=== PATIENT | female | born 1995 | race African-American/Black ===

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

== ENCOUNTER 2017-03-17 09:49 | Emergency (ER) | payer SELFPAY, BC, MEDICAID ==
[2017-03-17 10:13] LABS: URINE HCG POC HCG NEGATIVE (Negative)
[2017-03-17 10:19] LABS: BILIRUBIN,URINE NEGATIVE (NEG); CLARITY,URINE CLEAR; COLOR,URINE YELLOW; GLUCOSE,URINE NEGATIVE (NEG); NITRITE,URINE NEGATIVE (NEG); PROTEIN,URINE NEGATIVE (NEG-TRACE); UROBILINOGEN,URINE 0.2 mg/dL (0.2 mg/dL)
[2017-03-17 10:29] LABS: BACTERIA,URINE FEW /HPF (0-FEW); RBC,URINE 0 /HPF (0-2); SQUAMOUS EPITHELIAL CELL,UR MOD /LPF; WBC,URINE 0 /HPF (0-4)
[2017-03-21 01:12] LABS: CHLAMYDIA PROBE Negative (Negative); GC PROBE Negative (Negative)
== END 2017-03-17 12:04 | disposition home or self-care (01) ==
LOC: ER 09:49
DX: R30.0 Dysuria (principal); N89.8 Other specified noninflammatory disorders of vagina; Z87.440 Personal history of urinary (tract) infections
CPT/HCPCS: 81001; 81025; 87491; 87591; 99284; Q0111

== ENCOUNTER 2017-05-27 21:48 | Emergency (ER) | payer BC ==
[2017-05-27 22:06] LABS: URINE HCG POC HCG NEGATIVE (Negative)
== END 2017-05-27 23:23 | disposition home or self-care (01) ==
LOC: ER 21:48
DX: R14.1 Gas pain (principal); R07.89 Other chest pain; R10.12 Left upper quadrant pain; R05 Cough; R09.81 Nasal congestion; R19.7 Diarrhea, unspecified; R09.89 Other specified symptoms and signs involving the circulatory and respiratory systems; Z87.440 Personal history of urinary (tract) infections
CPT/HCPCS: 81025; 99284

== ENCOUNTER 2017-08-20 21:04 | Emergency (ER) | payer BC ==
[2017-08-20 21:36] LABS: BILIRUBIN,URINE NEGATIVE (NEG); CLARITY,URINE CLEAR; COLOR,URINE YELLOW; GLUCOSE,URINE NEGATIVE (NEG); NITRITE,URINE NEGATIVE (NEG); PH,URINE 6.5; PROTEIN,URINE NEGATIVE (NEG-TRACE)
[2017-08-20 21:37] LABS: URINE HCG POC HCG NEGATIVE (Negative)
[2017-08-20 21:45] LABS: BACTERIA,URINE FEW /HPF (0-FEW); SQUAMOUS EPITHELIAL CELL,UR MOD /LPF
== END 2017-08-20 22:25 | disposition home or self-care (01) ==
LOC: ER 22:25
DX: N39.0 Urinary tract infection, site not specified (principal)
CPT/HCPCS: 81001; 81025; 87086; 99284

== ENCOUNTER 2021-01-02 12:48 | Emergency (ER) | payer SELFPAY ==
[~2021-01-02] VITALS: Ht 165.1 cm; Wt 93.8 kg
[~2021-01-02 12:48] MED LIST changes: +CEPH500T PO; +DOXY-96 PO; +DOXY100T PO; +FLUC150T PO; +IBUP-1007 PO; +MECL-75 PO; +METH4TAB2 PO; +NAPR500T8 PO; +PHEN100T82 PO
[2021-01-02 13:06] LABS: BILIRUBIN,URINE NEGATIVE (NEG); CLARITY,URINE CLOUDY; COLOR,URINE YELLOW; NITRITE,URINE NEGATIVE (NEG); PH,URINE 7.5 (<5.0-8.0); PROTEIN,URINE 30 mg/dL (NEG-TRACE); UROBILINOGEN,URINE 0.2 mg/dL (0.2 mg/dL)
--- NOTE | 2021-01-02 13:06 | PHYS DOC ---
Past Medical History Past Medical History: No Pertinent History (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 She states that today she started having right side pain. She denies urinary symptoms, vaginal bleeding, abnormal vaginal discharge, STD concern, fever, diarrhea, constipation, nausea, vomiting. Patient states that she did go see Dr Kaplan this past Monday and they did an ultrasound but she is to early for them to see anything. Her pain a 2 out of 10 at this time[address] [facility] Review of Systems: Review of Systems: Constitutional: Denies fever or chills. [] Eyes: Denies change in visual acuity. [] HENT: Denies nasal congestion or sore throat. [] Respiratory: Denies cough or shortness of breath. [] Cardiovascular: Denies chest pain or edema. [] GI: + Low mid abdominal pain, denies nausea, vomiting, bloody stools or diarrhea. [] : Denies dysuria. [] Musculoskeletal: + Right side back pain or denies joint pain. [] Integument: Denies rash. [] Neurologic: Denies headache, focal weakness or sensory changes. [] Endocrine: Denies polyuria or polydipsia. [] Lymphatic: Denies swollen glands. [] Psychiatric: Denies depression or anxiety. [] [facility]IC[facility]) Heart Score: C/O Chest Pain: No ([facility]) Allergies: Allergies: Allergies Coded Allergies Type Severity Reaction Last Updated Verified No Known Drug Allergies 10/20/14 No [facility]) Physical Exam: PE: Constitutional: Well developed, well nourished, no acute distress, non-toxic appearance. [] HENT: Normocephalic, atraumatic, bilateral external ears normal, oropharynx moist, no oral exudates, nose normal. [] Eyes: PERRLA, EOMI, conjunctiva normal, no discharge. [] Neck: Normal range of motion, no tenderness, supple, no stridor. [] Cardiovascular:Heart rate regular rhythm, no murmur [] Lungs & Thorax: Bilateral breath sounds clear to auscultation [] Abdomen: Bowel sounds normal, soft, no tenderness, no masses, no pulsatile masses. [] Skin: Warm, dry, no erythema, no rash. [] Back: No tenderness, no CVA tenderness. [] Extremities: No tenderness, no cyanosis, no clubbing, ROM intact, no edema. [] Neurologic: Alert and oriented X 3, normal motor function, normal sensory function, no focal deficits noted. [] Psychologic: Affect normal, judgement normal, mood normal. [] Normal physical exam (SIMÓN DEVINE APRN) EKG: EKG: [] (SIMÓN DEVINE APRN) Radiology/Procedures: Radiology/Procedures: [] Impression: [facility] [address] [place], [place] [id number] IMAGING REPORT Signed PATIENT: WON CHAMORRO ACCOUNT: [id number] : 1995 LOCATION: ER AGE: 25 SEX: F EXAM STATUS: REG ER ORD. PHYSICIAN: SIMÓN DEVINE APRN REASON: ABDOMINAL PAIN WITH PROCEDURE: OB < 14 WKS Exam performed: OB sonogram less than 14 weeks. History:Abdominal pain with . Date of service: 01/02/2021. Comparison: None available Technique: Transabdominal. Findings: The uterus measures 8.4 x 4.4 x 3.8cm. There is no intrauterine uterine gestational sac . Bilateral ovaries are normal. The right ovary measures 2.2 x 1.6 x 1.3 cm the left ovary measures 2. 2.6 x 2.5 x 2.3 3 cm. No solid or cystic mass lesions identified. There is no free fluid Impression: Normal uterus and bilateral ovaries. No intra or extra uterine gestational sac or seen. Correlate with serial quantitative beta-hCG level and a short-term interval OB ultrasound in 2 weeks may be obtained. Electronically signed by: Cammie Maxwell MD (01/02/2021 4:19 PM) [facility] DICTATED and SIGNED BY: CAMMIE MAXWELL MD DATE: 01/02/21 [id number] (SIMÓN DEVINE APRN) Course & Med Decision Making: Course & Med Decision Making Pertinent Labs and Imaging studies reviewed. (See chart for details) See HPI. Alert and oriented x4. Ambulatory steady gait. Speaks in full clear sentences. No CVA tenderness. Abdomen is soft and nontender. Afebrile. Skin pink warm and dry. [] (SIMÓN DEVINE APRN) Course & Med Decision Making Patient was treated for urinary tract infection with cephalexin. Concern for bacteriuria in . The beta hCG quantitative was in the nondiscriminatory zone, and IUP was not yet identified on pelvic ultrasound. But also no evidence of ectopic . Patient was discharged with OB follow-up and return precautions. (KINJAL CARDENAS MD) Dragon Disclaimer: Dragon Disclaimer: This electronic medical record was generated, in whole or in part, using a voice recognition dictation system. (SIMÓN DEVINE APRN) Departure Departure Impression: Primary Impression: Flank pain Additional Impression: Urinary symptom or sign Disposition: 01 HOME / SELF CARE / HOMELESS Condition: STABLE Referrals: RYLAN ANDREWS MD (PCP) Patient Instructions: - Urinary Tract Infection Additional Instructions: Follow-up with your [facility] in the next couple weeks if pain worsens. If you begin running a fever, begin having vaginal bleeding or abnormal vaginal discharge or severe abdominal pain return to the emergency room. Take medication as prescribed and with food. Take Tylenol for pain. Scripts Cephalexin (KEFLEX) 500 Mg Capsule 1 CAP PO TID, #21 CAP Prov: SIMÓN DEVINE APRN 01/02/21 SIMÓN DEVINE APRN Jan 02, 2021 13:06 KINJAL CARDENAS MD Jan 02, 2021 17:47
[2021-01-02 13:21] LABS: BACTERIA,URINE FEW /HPF (0-FEW); RBC,URINE OCC /HPF (0-2)
[2021-01-02 13:40] LABS: U PREG PATIENT POSITIVE (NEG)
[2021-01-02] MEDS ORDERED: IV NORMAL SALINE 1000ML BAG 1,000 ML IV ONE (13:45)
[2021-01-02 14:04] LABS: BASO # 0.1 x10^3/uL (0.0-0.2); BASO % 1 % (0-3); EOS # 0.2 x10^3/uL (0.0-0.7); EOS % 2 % (0-3); HEMOGLOBIN 14.1 g/dL (12.0-15.5); LYMPH # 1.8 x10^3/uL (1.0-4.8); LYMPH % 19 % (24-48); MEAN CORPUSCULAR HEMOGLOBIN 28 pg (25-35); MEAN CORPUSCULAR HGB CONC 35 g/dL (31-37); MEAN CORPUSCULAR VOLUME 83 fL (79-100); MONO % 11 % (0-9); NEUT # 6.3 x10^3/uL (1.8-7.7); NEUT % 68 % (31-73); PLATELET COUNT 282 x10^3/uL (140-400); RED BLOOD COUNT 4.97 x10^6/uL (3.50-5.40); RED CELL DISTRIBUTION WIDTH 13.8 % (11.5-14.5); WHITE BLOOD COUNT 9.3 x10^3/uL (4.0-11.0)
[2021-01-02 14:45] LABS: CREATININE 0.9 mg/dL (0.6-1.0); GFR 93.9; POTASSIUM 3.8 mmol/L (3.5-5.1)
[2021-01-02 14:52] LABS: ALBUMIN 3.6 g/dL (3.4-5.0); ALBUMIN/GLOBULIN RATIO 0.9 (1.0-1.7); TOTAL BILIRUBIN 0.2 mg/dL (0.2-1.0); TOTAL PROTEIN 7.8 g/dL (6.4-8.2)
[2021-01-02 15:47] VITALS: BP 113/56
--- NOTE | 2021-01-02 16:22 | RAD ---
Exam performed: OB sonogram less than 14 weeks. History:Abdominal pain with . Date of service: 01/02/2021. Comparison: None available Technique: Transabdominal. Findings: The uterus measures 8.4 x 4.4 x 3.8cm. There is no intrauterine uterine gestational sac . Bilateral ovaries are normal. The right ovary measures 2.2 x 1.6 x 1.3 cm the left ovary measures 2. 2.6 x 2.5 x 2.3 3 cm. No solid or cystic mass lesions identified. There is no free fluid Impression: Normal uterus and bilateral ovaries. No intra or extra uterine gestational sac or seen. Cor relate with serial quantitative beta-hCG level and a short-term interval OB ultrasound in 2 weeks may be obtained. Electronically signed by: Cammie Maxwell MD (01/02/2021 4:19 PM) [facility]
[2021-01-02] MEDS ORDERED: CEPH500C PO (16:28)
== END 2021-01-02 16:41 | disposition home or self-care (01) ==
LOC: ER 12:48
DX: O26.891 Other specified pregnancy related conditions, first trimester (principal); R10.30 Lower abdominal pain, unspecified; R39.9 Unspecified symptoms and signs involving the genitourinary system; Z3A.01 Less than 8 weeks gestation of pregnancy
CPT/HCPCS: 36415; 76801; 80053; 81001; 81025; 84702; 85025; 87086; 96360; 99285; J7030